=== PATIENT | male | born 1970 | race Hispanic/Latino ===

== ENCOUNTER 2018-09-01 14:06 | Emergency (ER) | payer MEDICAID, OTHER ==
[2018-09-01 14:20] VITALS: BMI 30.1
[2018-09-01 14:24] VITALS: PULSE 71; RESP 22; TEMP 97.7; O2SAT 99
[2018-09-01 14:47] LABS: BASO # 0.1 K/uL (0.0-0.2); BASO % 0.8 % (0.0-2.0); EOS # 0.2 K/uL (0.0-0.7); EOS % 1.3 % (0.0-4.0); HEMOGLOBIN 16.1 g/dL (12.0-18.0); LYMPH # 2.7 K/uL (1.0-4.3); LYMPH % 23.7 % (20.0-40.0); MEAN CELL VOLUME 90.1 fL (80.0-94.0); MEAN CORPUSCULAR HEMOGLOBIN 30.7 pg (27.0-31.0); MEAN CORPUSCULAR HGB CONC 34.1 g/dL (33.0-37.0); MEAN PLATELET VOLUME 8.6 fL (7.2-11.7); MONO # 1.1 K/uL (0.0-0.8); MONO % 9.5 % (0.0-10.0); NEUT # 7.5 K/uL (1.8-7.0); NEUT % 64.7 % (50.0-75.0); RBC 5.23 Mil/uL (4.40-5.90); RED CELL DISTRIBUTION WIDTH 13.9 % (11.5-14.5); WHITE BLOOD COUNT 11.6 K/uL (4.8-10.8)
[2018-09-01 14:57] LABS: ALB/GLOB RATIO 1.6 (1.0-2.1); ALBUMIN 4.7 g/dL (3.5-5.0); ALT/SGPT 35 U/L (21-72); AST/SGOT 27 U/L (17-59); BLOOD UREA NITROGEN 12 mg/dL (9-20); CALCIUM 9.5 mg/dl (8.6-10.4); GFR NON-AFRICAN AMERICAN > 60; LIPASE 86 U/L (23-300)
--- NOTE | 2018-09-01 15:46 | C.PDOC ---
History Of Present Illness 48 year old male, whose past medical history includes left kidney stone one month ago, presents to the ED for evaluation of worsening left lower quadrant abdominal pain that has been radiating to groin. Patient was evaluated in for similar symptoms in the past, but did not receive treatment. Patient states symptoms are associated with nausea and several episodes of vomiting. Patient has not taken any medication for pain and denies fever, chills. Chief Complaint (Nursing): Abdominal Pain History Per: Patient History/Exam Limitations: no limitations Onset/Duration Of Symptoms: Days Current Symptoms Are (Timing): Worse Quality Of Discomfort: "Pain" Associated Symptoms: Nausea, Vomiting. denies: Fever, Chills Past Medical History Reviewed: Historical Data, Nursing Documentation, Vital Signs Vital Signs: Last Vital Signs Temp 97.7 F 09/01/18 14:19 Pulse 71 09/01/18 14:19 Resp 22 09/01/18 14:19 BP Pulse Ox 99 09/01/18 14:19 - Medical History PMH: Depression, Fractures (RIGHT HEEL, LEFT TIB/FIB), HTN Surgical History: No Surg Hx - [facility] Procedures CLOSURE SKIN & SUBCUTANEOUS NEC (03/28/13) TETANUS TOXOID ADMINIST (03/28/13) Family History: States: Hypertension - Social History Hx Tobacco Use: Yes Hx Alcohol Use: Yes ("WEEKENDS") Hx Substance Use: No (DENIED) - Immunization History Hx Tetanus Toxoid Vaccination: No Hx Influenza Vaccination: No Hx Pneumococcal Vaccination: No Review Of Systems Constitutional: Negative for: Fever, Chills Gastrointestinal: Positive for: Nausea, Vomiting, Abdominal Pain (left lower quadrant ) Physical Exam - Physical Exam Appears: Non-toxic, Other (in painful distress ) Skin: Normal Color, Warm, Dry Head: Atraumatic, Normacephalic Eye(s): bilateral: Normal Inspection Oral Mucosa: Moist Neck: Supple Chest: Symmetrical, No Deformity, No Tenderness Cardiovascular: Rhythm Regular, No Murmur Respiratory: Normal Breath Sounds, No Rales, No Rhonchi, No Wheezing Gastrointestinal/Abdominal: Soft, Tenderness (mild, left lower quadrant ), No Guarding, No Rebound Back: CVA Tenderness (mild, left ) Extremity: Normal ROM, Capillary Refill (less than 2 seconds ) Neurological/Psych: Oriented x3, Normal Speech, Normal Cognition ED Course And Treatment - Laboratory Results Result Diagrams: 09/01/18 14:38 09/01/18 14:38 Lab Results: Total Bilirubin 0.8 mg/dL (0.2-1.3) 09/01/18 14:38 AST 27 U/L (17-59) 09/01/18 14:38 ALT 35 U/L (21-72) 09/01/18 14:38 Alkaline Phosphatase 99 U/L (38-126) 09/01/18 14:38 Total Protein 7.7 g/dL (6.3-8.3) 09/01/18 14:38 Albumin 4.7 g/dL (3.5-5.0) 09/01/18 14:38 Globulin 3.0 gm/dL (2.2-3.9) 09/01/18 14:38 Albumin/Globulin Ratio 1.6 (1.0-2.1) 09/01/18 14:38 Lipase 86 U/L (23-300) 09/01/18 14:38 O2 Sat by Pulse Oximetry: 99 (on RA) Pulse Ox Interpretation: Normal Medical Decision Making Medical Decision Making: Progress: Bloodwork, urinalysis, CT A/P ordered and reviewed. Patient given Morphine IVP and Toradol IVP given. pt with left flank/abdominal pain, similar to kidney stones one month ago. pt given one dose toradol, still with pain 15 minutes later, one dose iv morphine ordered, pt now appears well and is pain free, requesting food, advised by me to be npo. [address] scan abdomen, in no pain at this time. pt sts he has an appt with a doctor to give him injections in his knees tomorrow that he has waited a long time for and will not miss it. discussed with patient that cause of his pain unknown, could be kidney stone, small bowel obstruction. enteritis, colitis, diverticulitis. pt understands risks and consequences of leaving against medical advice including and permanent disability. Disposition Counseled Patient/Family Regarding: Studies Performed, Diagnosis, Need For Followup - Disposition Referrals: 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 - Scribe Statement The provider has reviewed the documentation as recorded by the Scribe (Meka Bianchi) All medical record entries made by the Scribe were at my direction and personally dictated by me. I have reviewed the chart and agree that the record accurately reflects my personal performance of the history, physical exam, medical decision making, and the department course for this patient. I have also personally directed, reviewed, and agree with the discharge instructions and disposition.
[2018-09-01] MEDS ORDERED: Morphine 4 MG/ML VIAL ONE (15:49)
[2018-09-01 17:46] LABS: URINE BACTERIA RARE (<OCC); URINE BILIRUBIN NEGATIVE (NEGATIVE); URINE BLOOD 3+ (NEGATIVE); URINE CLARITY Clear (Clear); URINE COLOR Yellow (YELLOW); URINE GLUCOSE (UA) NORMAL (Normal); URINE HYALINE CAST 0-2 /lpf (0-2); URINE LEUKOCYTE ESTERASE NEG Leu/uL (Negative); URINE PROTEIN 1+ mg/dL (NEGATIVE); URINE UROBILINOGEN NORMAL mg/dL (0.2-1.0)
== END 2018-09-01 17:51 | disposition left against medical advice (07) ==
LOC: C.ER 14:06
DX: R10.32 Left lower quadrant pain (principal)
CPT/HCPCS: 80053; 81001; 83690; 85025; 96374; 96375; 99283; J1885; J2270